=== PATIENT | male | born 1960 | race Caucasian/White ===

== ENCOUNTER 2019-12-15 20:06 | Observation (INO) ==
[2019-12-15 21:10] LABS: ABS Basophils 0.1 10^3/ul (0-0.2); ABS Eosinophils 0.3 10^3/ul (0-0.6); ABS Lymphocytes 2.5 10^3/ul (1.0-4.8); ABS Monocytes 0.7 10^3/ul (0-0.8); ABS Neutrophils 5.6 10^3/ul (1.5-7.7); Hematocrit 41 % (42-52); Hemoglobin 13.7 g/dL (14.0-18.0); Lymphocyte % 27.2 %; Mean Corpuscular HGB Conc 33 g/dL (31-36); Mean Corpuscular Hemoglobin 29 pg (27-31); Mean Corpuscular Volume 87 fL (80-94); Platelet Count 295 10^3/uL (150-450); Red Blood Count 4.72 10^6 /uL (4.18-5.48); Red Cell Distribution Width 14 % (10-15)
[2019-12-15 21:17] LABS: INR 0.98 (0.82-1.09)
[2019-12-15 21:30] LABS: ALT 16 U/L (7-52); AST 14 U/L (13-39); Albumin/Globulin Ratio 1.5 (1-3); Alkaline Phosphatase 110 U/L (34-104); Anion Gap 5 mmol/L (2-11); BUN/Creatinine Ratio 10.4 (8-20); Blood Urea Nitrogen 16 mg/dL (6-24); CO2 Carbon Dioxide 29 mmol/L (22-32); Calcium 8.7 mg/dL (8.6-10.3); Chloride 104 mmol/L (101-111); EGFR African American 56.4 (>60); EGFR Non-African American 46.6 (>60); Globulin 2.6 g/dL (2-4); Glucose 139 mg/dL (70-100); Sodium 138 mmol/L (135-145); Total Protein 6.6 g/dL (6.4-8.9)
[2019-12-15 21:34] LABS: Troponin I 0.04 ng/mL (<0.03)
[2019-12-16] MEDS ORDERED: Dextrose 50% Syringe 50 ml 25 GM/50 ML SYRINGE IV PUSH PRN (00:55)
[2019-12-16] MEDS ORDERED: Ondansetron 4 mg VIAL 2 MG/ML 2 ml VIAL IV PRN (00:55)
[2019-12-16] MEDS: NS 0.9% 1000 ml BAG 1,000 ML IV SCH ×2 (02:13→17:00)
[2019-12-16 04:12] LABS: INR 1.01 (0.82-1.09)
[2019-12-16 04:32] LABS: HDL Cholesterol 36.7 mg/dL
[2019-12-16] MEDS: Heparin 5000 UNITS/ML 1 mL VIAL SUBCUT SCH ×3 (05:29→21:05)
[2019-12-16] MEDS: Cholecalciferol (VIT D3) 1,000 unit TAB PO SCH ×2 (10:56→21:05)
[2019-12-17] MEDS: Heparin 5000 UNITS/ML 1 mL VIAL SUBCUT SCH (06:08)
[2019-12-17 06:11] LABS: BUN/Creatinine Ratio 13.3 (8-20); Calcium 9.2 mg/dL (8.6-10.3); EGFR African American 75.2 (>60); EGFR Non-African American 62.2 (>60); Potassium 4.1 mmol/L (3.5-5.0)
[2019-12-17] MEDS: Cholecalciferol (VIT D3) 1,000 unit TAB PO SCH (08:56)
[2019-12-17 12:41] VITALS: BP 127/62
== END 2019-12-17 12:45 | disposition home or self-care (01) ==
LOC: MEDTELE 20:06 → ED 20:06 → MEDTELE 12-16 01:53
PROVIDERS: ADMIT Nurse Practitioner Family; ATTEND Internal Medicine